=== PATIENT | male | born 1970 | race Caucasian/White ===

== ENCOUNTER 2025-03-31 16:44 | Emergency (ER) | payer OTHER, SELFPAY ==
[2025-03-31] VITALS (10 sets, daily range): BP systolic 81–164; BP diastolic 46–93; PULSE 50–89; RESP 14–25; TEMP 36.7; O2SAT 95–97; BMI 31.5
--- OUTSIDE RECORDS SUMMARY | 2025-03-31 16:51 | XMS_ITS | Data Portability ---
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 I was present during interview and exam. I have reviewed and agree with above documentation . Dr. Mandy Rubi. [email or web address] Not available 03/22/2025 09:14:47 Plan of Treatment Reminders Order Date Submit Date Provider Last Modified By Organization Details Last Modified Time Details Appointments None recorded. Lab CMP, serum or plasma 2024 025 [email or web address] [facility], [address], [address], [place], [address], 11:02:44 CBC 2024 025 [email or web address] [facility], [address] [facility], [address], [place], [address], 5 11:02:44 alpha-gal ige, serum 2024 025 [email or web address] [employer] [facility], [address], [place], [address], 11:02:44 celiac disease comprehen sive panel, serum 2024 025 [email or web address] [employer] [facility], [address], [place], [address], 5 11:02:45 rapid flu (A+B), PCR 2023 024 [email or web address] [facility] ([facility]), [address] [place], [address], 4 16:55:42 PSA, serum or plasma 2022 023 [facility], [address] [address], [facility] [address] [place], [address], 3 08:21:41 CMP, serum or plasma [address] ([facility]), [address] [place], [address], 5 10:50:49 lipid panel, blood [address] ([facility]), [address] [place], [address], 5 10:51:00 Referral None recorded. Procedures None recorded. Surgeries None recorded. Imaging None recorded. Medication Orders pantopraz ole 40 mg tablet,de layed release 2024 [address] [place] [address] [facility], [address], [place], [address], 5 11:07:31 oseltamiv ir 75 mg capsule 2023 025 [facility], [address], [place], [address], 5 09:03:41 Patient TargetsNo targets recorded. Patient InstructionsNo instructions recorded. Reason for Referral None Reported. Results Created Date Observation Date Name Description Value Unit Range Abnormal Flag Note LastModifiedBy Organization Detail LastModifiedTime 01/15/20 23 01/15/2023 LIPID PANEL , STAND JERALD cholesterol, total 236 mg/dL <200 high Not Available [address], [address], 01/15/2023 08:21:40 01/15/20 23 01/15/2023 LIPID PANEL , STAND JERALD HDL cholesterol 33 mg/dL > or = 40 low Not Available [address], [address], 01/15/2023 08:21:40 01/15/20 23 01/15/2023 LIPID PANEL , STAND JERALD triglyceride s 270 mg/dL <150 high If a non-f astin g speci men was colle cted, consi charmaine repea t trigl yceri de testi ng on a fasti ng speci men if clini ahmet indic ated. Ivan choi et al. J. of Clin. Lipid ol. 2015; 9:129 -169. Not Available [address], [address], 01/15/2023 08:21:40 01/15/2001/15/2023 LIPID PANEL , STAND JERALD LDL-choleste rol 159 mg/dL _(kathi c) high Refer ence range : <100 Conrad able range <100 mg/dL for prima ry preve ntion ; <70 mg/dL for patie nts with CHD or diabe tic patie nts with > or = 2 CHD risk facto rs. LDL-C is now calcu lated using the Sharon n-Hop kins calcu mei n, which is a valid ated novel renetta reese than the Fried carmen equat ion in the estim ation of LDL-C . Sharon bradley SS et al. DEEP. 2013; 310(1 9): 2061- 2068 (http ://ed ucati on.Qu estDi agnos tics. com/f aq/FA Q164) Not Available [address], [address], 01/15/2023 08:21:40 01/15/20 23 01/15/2023 LIPID PANEL , STAND JERALD chol/HDLC ratio 7.2 (calc ) <5.0 high Not Available [address], [address], 01/15/2023 08:21:40 01/15/20 23 01/15/2023 LIPID PANEL , STAND JERALD non HDL cholesterol 203 mg/dL _(kathi c) <130 high For patie nts with diabe julio césar plus 1 major ASCVD risk facto r, treat ing to a non-H DL-C goal of <100 mg/dL (LDL- C of <70 mg/dL ) is consi dered a thera peuti c optio n. Not Available [address], [address], 01/15/2023 08:21:40 01/15/2001/15/2023 COMPR EHENS JOSHUA METAB OLIC PANEL glucose 113 mg/dL 65-99 high Fasti ng refer ence inter linda For someo ne witho ut known diabe julio césar, a gluco se value betwe en 100 and 125 mg/dL is consi stent with predi abete s and shoul d be confi rmed with a follo w-up test. Not Available [address], [address], 01/15/2023 08:21:40 01/15/2001/15/2023 COMPR EHENS JOSHUA METAB OLIC PANEL urea nitrogen (BUN) 15 mg/dL 7-25 normal Not Available [address], [address], 01/15/2023 08:21:40 01/15/20 23 01/15/2023 COMPR EHENS JOSHUA METAB OLIC PANEL creatinine 1.15 mg/dL 0.70-1 .30 normal Not Available [facility] [address] [place], [address], 01/15/2023 08:21:40 01/15/20 23 01/15/2023 COMPR EHENS JOSHUA METAB OLIC PANEL eGFR 77 mL/mi n/1.7 3m2 > or = 60 normal The eGFR is based on the CKD-E PI 2020 equat ion. To calcu late the new eGFR from a previ ous Creat inine or Cysta tin C resul t, go to https ://lolita w.isak toledoy.o silvestre/hang kim s/ kdoqi /gfr% 5Fcal culat or Not Available [address], [address], 01/15/2023 08:21:40 01/15/20 23 01/15/2023 COMPR EHENS JOSHUA METAB OLIC PANEL BUN/creatini ne ratio NOT APPLIC ABLE (calc ) 6-22 Not Available [address], [address], 01/15/2023 08:21:40 01/15/20 23 01/15/2023 COMPR EHENS JOSHUA METAB OLIC PANEL sodium 139 mmol/ L 135-14 6 normal Not Available [address], [address], 01/15/2023 08:21:40 01/15/20 23 01/15/2023 COMPR EHENS JOSHUA METAB OLIC PANEL potassium 4.8 mmol/ L 3.5-5. 3 normal Not Available [employer] [address], [address], 01/15/2023 08:21:40 01/15/20 23 01/15/2023 COMPR EHENS JOSHUA METAB OLIC PANEL chloride 105 mmol/ L 98-110 normal Not Available [employer] [address], [address], 01/15/2023 08:21:40 01/15/20 23 01/15/2023 COMPR EHENS JOSHUA METAB OLIC PANEL carbon dioxide 28 mmol/ L 20-32 normal Not Available [address], [address], 01/15/2023 08:21:40 01/15/20 23 01/15/2023 COMPR EHENS JOSHUA METAB OLIC PANEL calcium 9.1 mg/dL 8.6-10 .3 normal Not Available [address], [address], 01/15/2023 08:21:40 01/15/20 23 01/15/2023 COMPR EHENS JOSHUA METAB OLIC PANEL protein, total 6.8 g/dL 6.1-8. 1 normal Not Available [address], [address], 01/15/2023 08:21:40 01/15/20 23 01/15/2023 COMPR EHENS JOSHUA METAB OLIC PANEL albumin 4.2 g/dL 3.6-5. 1 normal Not Available [address], [address], 01/15/2023 08:21:40 01/15/20 23 01/15/2023 COMPR EHENS JOSHUA METAB OLIC PANEL globulin 2.6 g/dL_ (calc ) 1.9-3. 7 normal Not Available [address], [address], 01/15/2023 08:21:40 01/15/20 23 01/15/2023 COMPR EHENS JOSHUA METAB OLIC PANEL albumin/glob ulin ratio 1.6 (calc ) 1.0-2. 5 normal Not Available [address], [address], 01/15/2023 08:21:40 01/15/20 23 01/15/2023 COMPR EHENS JOSHUA METAB OLIC PANEL bilirubin, total 0.5 mg/dL 0.2-1. 2 normal Not Available [facility] [address] [place], [address], 01/15/2023 08:21:40 01/15/20 23 01/15/2023 COMPR EHENS JOSHUA METAB OLIC PANEL alkaline phosphatase 68 U/L 35-144 normal Not Available [facility] [address] [address] [place], [address], 01/15/2023 08:21:40 01/15/20 23 01/15/2023 COMPR EHENS JOSHUA METAB OLIC PANEL AST 12 U/L 10-35 normal Not Available [facility] [address] [address] [place], [address], 01/15/2023 08:21:40 01/15/20 23 01/15/2023 COMPR EHENS JOSHUA METAB OLIC PANEL ALT 17 U/L 9-46 normal Not Available [facility] [address] [address] [place], [address], 01/15/2023 08:21:40 01/15/20 23 01/15/2023 PSA, TOTAL PSA, total 0.18 NG/mL < or = 4.00 normal The total PSA value from this assay syste m is stand ardiz ed again st the WHO stand jerald. The test resul t will be appro ximat apolonia 20% lower when andre red to the equim olar- stand ardiz ed total PSA (Mckinney man Coult er). Andre rison of seria l PSA resul ts shoul d be inter prete d with this fact in mind. This test was perfo rmed using the Sieme ns chemi lumin escen t metho d. Value s obtai quan from diffe rent assay metho ds canno t be used inter moseley eably . PSA level s, regar dless of value , shoul d not be inter prete d as absol rampart evide nce of the prese nce or absen ce of disea se. Not Available [employer] [address] [address] [place], [address], 01/15/2023 08:21:41 09/10/20 24 09/10/2024 rapid flu (A+B) , PCR Influenza A positi ve Not Available [facility] ([facility]) [address] [place], [address], 09/10/2024 16:09:20 09/10/20 24 09/10/2024 rapid flu (A+B) , PCR Influenza B negati ve Not Available [facility] ([facility]) [address] [place], [address], 09/10/2024 16:09:20 Result Notes None recorded. Problems Name Problem SNOMED Code Status Onset Date Resolution Date Notes Provider Name and Address Organization Details Recorded Time Essential hypertension 60305984 Active 2022 Beatriz younger, [facility] 5 09:02:07 Acute gastritis 96234308 Active 2024 Mandy Rubi DO [address] [place] [address], [address], [facility] 5 09:30:41 Problem Notes None recorded. Medical Equipment None Reported. Allergies No known drug allergies Medications Name Sig Start Date Stop Date Status Note LastModified by Organization Details LastModified Time atorvastatin 40 mg tablet Take 1 tablet every day by oral route in the evening for 90 days. 09/10 completed Not Available Not Available Not Available prednisone 20 mg tablet TAKE 2 TABLETS BY MOUTH ONCE DAILY FOR 3 DAYS, THEN 1 TABLET BY MOUTH FOR 3 DAYS, THEN 1/2 TAB BY MOUTH FOR 2 DAYS 01/14 completed Not Available Not Available Not Available tramadol 50 mg tablet TAKE 1 TABLET BY MOUTH EVERY 6 HOURS NEEDED FOR PAIN 01/14 completed Not Available Not Available Not Available cephalexin 500 mg capsule 01/14 completed Not Available Not Available Not Available pantoprazole 40 mg tablet,delay ed release Take 1 tablet every day by oral route in the morning, for gastriti s. 2024 active Not Available Not Available Not Avai lable oseltamivir 75 mg capsule Take 1 capsule twice a day by oral route for 5 days. 03/22 completed Not Available Not Available Not Available amoxicillin 875 mg-potassium clavulanate 125 mg tablet 01/14 completed Not Available Not Available Not Available Vitals Date Recorded Body weight Body mass index (BMI) Body height Oxygen saturation Oxygen saturation in Arterial blood by Pulse oximetry Heart rate Respiratory rate Body temperature Systolic And Diastolic Provider Name and Address Organization Details Last Updated DateTime 3 604296. 46 g 35.1 kg/m2 190.5 cm 98 % 98 % 88 /min 20 /min 97.4 [degF] 172/104 mm[Hg] PAMELA JOHNSON [facility] 3 08:24:42 Date Recorded Body height Body mass index (BMI) Body weight Oxygen saturation Oxygen saturation in Arterial blood by Pulse oximetry Heart rate Respiratory rate Systolic And Diastolic Provider Name and Address Organization Details Last Updated DateTime 5 190.5 cm 32.4 kg/m2 537321. 12 g 98 % 98 % 89 /min 18 /min 139/89 mm[Hg] Beatriz Kiser [facility] 5 09:03:19 Date Recorded Body height Body mass index (BMI) Body weight Body temperature Oxygen saturation Oxygen saturation in Arterial blood by Pulse oximetry Heart rate Systolic And Diastolic Provider Name and Address Organization Details Last Updated DateTime 4 190.5 cm 34.9 kg/m2 356044. 67 g 99.7 [degF] 99 % 99 % 94 /min 152/70 mm[Hg] Payton Mittal [facility] 4 16:12:18 Social History None recorded. Functional Status Question Answer Note LastModified by Organizat ion Details LastModified Time Do you use any illicit or recreational drugs? No [email or web address] Information not available 01/14/2023 Do you or have you ever used any other forms of tobacco or nicotine? No [email or web address] Information not available 01/14/2023 What is your level of alcohol consumption? None [email or web address] Information not available 01/14/2023 Mental Status None recorded. Family History Nothing Reported. Medical History No medical history recorded. Immunizations Vaccine Type Date Status Note Provider Nam e and Address Organization Details Recorded Time Td (adult), 2 Lf tetanus toxoid, preservative free, adsorbed 9 completed Not Available [facility] 03/22/2025 08:41:17 COVID-19, mRNA, LNP-S, PF, 100 mcg/0.5mL dose or 50 mcg/0.25mL dose 1 completed Not Available [facility] 03/22/2025 08:41:17 Past Encounters Encounter ID Performer Location Encounter Start Date Encounter Closed Date Diagnosis/Indication Diagnosis SNOMED-CT Code Diagnosis ICD10 Code Diagnosis Note [id number] Mandy Rubi DO [facility] ([facility]) [address] [place] [phone] 01/14/2023 08:09:01 01/14/2023 19:59:22 Active or passive immunization 861472872 Z23 Adult heal th examination 989016836 Z00.00 I counseled patient on diet, exercise, weight, and mental health. We discussed appropriat e cancer screenings . All questions were addressed. We will obtain wellness labs with phone followup. Screening for malignant neoplasm of prostate 995396140 Z12.5 Screening for malignant neoplasm of colon 023688737 Z12.11 I have reviewed and discussed colon cancer screening options, including colonoscop y. Discussed risks vs benefits including risk of infection and bleeding, perforatio n, possible need for surgery, reaction to medication s, and sever injury or . We discussed pt requiring sedation and possible general anesthesia . Pt agrees to proceed with Colonoscop y at [facility]. Preliminar y procedure date will be 02/05/23 Essential hypertension 94674831 I10 unconfirme d, but very high bp today. pt anxious about visit. pt will monitor bp daily for 2 wks with phone fu. counseled on bp parameters and action plans. possible need for medication s. pt will work on low salt diet and daily exercise. [id number] Mandy Rubi DO [facility] ([facility]) [address] [place] [phone] 03/01/2023 16:41:05 03/12/2023 04:09:26 [id number] MAMADOU FAIR [facility] ([facility]) [address] [place] [address] 09/10/2024 15:50:24 09/10/2024 16:31:28 Cough 50285649 R05.9 Influenza caused by Influenza A virus 431820623 J09.X2 Increase po fluids. Rest. RTC with any new or worsening symptoms. [id number] Mandy Rubi DO [facility] ([facility]) [address] [place] [address] 03/22/2025 08:39:06 03/28/2025 16:13:00 Acute gastritis 31452725 K29.00 03/22/25- Counseled on diagnosis, treatment options including medication s and possible side effects. Will start Pantoprazo le each am before he eats anything, for at least one month.Coun seled avoid smoking, tobacco, alcohol use, spicy/ acidic foods. Consider lab if not improving in 2 weeks, lab for anemic, gluten sensitivit y, alpha gal, orders placed today to be drawn if not improving. Health Concerns Section Related Observation LastModified by Organization Detai ls LastModified Time None Recorded Concern Status LastModified by Organization Details LastModified Time None Recorded Advance Directives Directive None Recorded Payers Insurance Date Sequence Insurance Name Policy Number Policy Vazquez Covered Member ID Vazquez Member ID Guarantor Name 02/09/2025 1 [employer] - IFB (PPO) [id number] Stephanie Bruce [id number] Stephanie Bruce 09/10/2024 1 [employer] [place] [place] [employer] [place] Stephanie Bruce [id number] Stephanie Bruce 03/21/2025 1 [facility] [[email or web address] - PHCS - DOS ON OR AFTER 2022 (PPO) Stephanie Bruce [id number] Stephanie Bruce Notes Date Note Type Note Provider Name and Address Organization Details Recorded Time 01/14/2023 text/html Annual WellnessReported bypatient.Diet and Nutrition:healthy diet Fracture Risk:no history of fractures; no recent explained fracture; no sudden unexplained fractures; no previous musculoskeletal injuries Physical Activity:exercises on a regular basis; recent increase in physical activity; good physical condition Additional Lifestyle Factors:no tobacco use; no alcohol intake; stopped drinking alcohol Depression Risk:never feels sad, empty, or tearful; no loss of interest in activities; no significant changes in weight; no sleep disturbances or insomnia; no agitation; no loss of energy; no feelings of worthlessness or guilt; no thoughts of suicide; no history of depression; no history of mood disorders Hearing:no loss of hearing Vision:no vision problemsNotes:The Patient presents to [facility] for consultation for colonoscopy at the request of: The patient denies any recent abdominal pain, persistent diarrhea, persistent constipation, bloody or dark tarry stools, or mucus stools. Last Colon Cancer screening: never Problems with anesthesia in the past: NONE Family History of Colon cancers: NONE Blood Thinners: NONE Co-morbidities: none New pt, pt has not had a PCP would like to discuss a colonoscopyhas been fasting, would like labs done The patient feels well with no complaints, has good energy level and is sleeping well. Nutrition: balanced diet. Patient exercises every other day. The patient denies any recent severe acute illness or hospitalizations or ER visits. The patient denies any recent medication changes and is tolerating meds well, taking them as prescribed. Mandy Rubi DO [address] [place] [address], [phone], [facility] 01/14/2023 09:01:56 02/26/2023 text/html I performed an E GD and/or a Colonoscopy today on this patient at [facility]. Please see operative note for details. Mandy Rubi DO [address] [place] [address], [phone], [facility] 05/05/2023 08:18:05 09/10/2024 text/html walk in ptPt has a cough, fever and body aches for 2 days. MAMADOU FAIR [address] [place] [address], [phone], [facility] 09/10/2024 16:28:27 03/22/2025 text/html Pt presents for GI upset and pain for 3 weeks He reports sx of decreased appetite, sob, and nausea. He went to bed sick to his stomach and woke up sick to his stomachHe only had diarrhea one episode one time in the last 3 weeks He feels worse after he eats. He has constant growling in his stomach. He has also had tightness to abd and excessive belchingDenies abd pain, reports he has significant bloating. He has taken Rolaids, Tums, Pepto, these may help for a short period when he takes them. He has been losing weight, 20 lbs down since last seen in [place] 09/10/24.He has been working on weight loss, has cut bread out of his diet for the most part. Nonsmoker.No chewing tobacco.Very rare alcohol.Very seldom NSAID use. He admits he probably takes in too much caffeine, drinking unsweet tea, hasn't been drinking much of it the last 1.5 wks, has been drinking water. He admits he was consuming a lot of red pepper, has cut back on this. He did have a tick bite on his back in December, left a welp for a few days. Mandy Rubi, DO [address] [place] [address], [phone], [place] YEFRI [facility] 03/28/2025 09:30:47
[2025-03-31 17:57] LABS: Hematocrit 42.7 % (37-53); Hemoglobin 14.00 g/dL (11.27-16.99); Mean Corpuscular HGB Conc 32.8 g/dL (30-55); Mean Corpuscular Hemoglobin 27.9 pg (27-33); Mean Corpuscular Volume 85.1 fl (82-101); Nucleated Red Blood Cells % 0 %; Platelet Count 192 10^3/cmm (157-399); Red Blood Count 5.02 10^6/uL (3.85-5.65); White Blood Count 6.39 10^3/uL (3.29-11.43)
[2025-03-31 18:18] LABS: Alanine Aminotransferase 21 U/L (0-41); Albumin Level 4.4 g/dL (3.5-5.2); Alkaline Phosphatase 76 U/L (40-130); Anion Gap 17.1 (5-19); Aspartate Amino Transferase 16 U/L (0-40); Blood Urea Nitrogen 20 mg/dL (6-20); Calcium 9.2 mg/dL (8.5-10.5); Carbon Dioxide 25 mmol/L (22-29); Chloride 101 mmol/L (98-107); Creatinine Clr Calc Pharmacy 95.9756; Globulin 3.0 g/dL (1.3-4.6); Glucose 98 mg/dL (65-115); Osmolality Calculated 291 mOsm/kg (285-295); Potassium 4.1 mmol/L (3.5-5.1); Sodium 139 mmol/L (136-145); Total Protein 7.4 g/dL (6.6-8.7)
[2025-03-31 18:25] LABS: INR 0.97 (0.8-1.2); Prothrombin Time 13.50 SECONDS (12.1-14.9)
[2025-03-31] MEDS: HYDROcodone-acetaminophen 5-325 mg Tablet 1 TAB PO (18:25)
[2025-03-31 18:26] LABS: Partial Thromboplastin Time 42.3 SECONDS (23.9-36.7)
--- NOTE | 2025-03-31 19:43 | PC.NURSE ---
Was assessing the patient and he suddenly became pale, diaphoretic, HR dropped to 50, BP 81/46. Put patient flat, applied threat monitoring analyst, started IV. Patient rebounded back to normal after approx 10 mins. HR 73, BP 102/58. Denies any sob, cp. does endorse dizziness.
[2025-03-31 21:24] LABS: Hematocrit 41.7 % (37-53); Hemoglobin 13.50 g/dL (11.27-16.99); Mean Corpuscular HGB Conc 32.4 g/dL (30-55); Mean Corpuscular Hemoglobin 27.4 pg (27-33); Mean Corpuscular Volume 84.6 fl (82-101); Nucleated Red Blood Cells % 0 %; Platelet Count 185 10^3/cmm (157-399); Red Blood Count 4.93 10^6/uL (3.85-5.65); White Blood Count 11.53 10^3/uL (3.29-11.43)
[2025-03-31 21:39] LABS: INR 1.15 (0.8-1.2); Prothrombin Time 15.50 SECONDS (12.1-14.9)
[2025-03-31 21:43] LABS: Alanine Aminotransferase 21 U/L (0-41); Albumin Level 4.2 g/dL (3.5-5.2); Alkaline Phosphatase 71 U/L (40-130); Anion Gap 19.0 (5-19); Aspartate Amino Transferase 15 U/L (0-40); Blood Urea Nitrogen 19 mg/dL (6-20); Calcium 8.9 mg/dL (8.5-10.5); Carbon Dioxide 25 mmol/L (22-29); Chloride 100 mmol/L (98-107); Creatinine Clr Calc Pharmacy 95.9756; Globulin 2.8 g/dL (1.3-4.6); Glucose 116 mg/dL (65-115); Osmolality Calculated 293 mOsm/kg (285-295); Potassium 4.0 mmol/L (3.5-5.1); Sodium 140 mmol/L (136-145); Total Protein 7.0 g/dL (6.6-8.7)
--- NOTE | 2025-03-31 22:26 | ECG_ITS ---
[facility] Test Date: 2025-03-31 Pat Name: Stephanie Bruce Department: Room: Gender: Male Check Out Clerk: : 1970 Requested By: Hemant Deng Order Number: [id number] Diaz MD: Compa Barillas M.D. Measurements Intervals [place] Rate: 82 P: 51 NE: 187 QRS: 18 QRSD: 104 T: 38 QT: 381 QTc: 448 Interpretive Statements SINUS RHYTHM POSSIBLE LEFT ATRIAL ENLARGEMENT [-0.1mV P-WAVE IN V1/V2] LOW QRS VOLTAGE IN PRECORDIAL LEADS [QRS DEFLECTION < 1.0 mV IN CHEST LEADS] No previous ECG available for comparison Electronically Signed On 04-01-2025 00:15:05 CDT by Compa Barillas M.D. [email or web address]
--- NOTE | 2025-03-31 22:28 | W.ED.ANIMALB ---
HPI - Animal Bite General: Chief Complaint: Animal Bite Stated Complaint: poss snake bite Time Seen by Provider: 03/31/25 17:02 History of Present Illness: Patient is a male who presents to the ED with a suspected snake bite to the right ankle. The incident occurred at approximately 15:30 today while the patient was cutting hay. He reports that he got off his tractor to adjust the razor cutter when he felt something strike his right ankle. The patient did not visualize the snake but felt immediate pain at the site. He continued cutting hay for approximately 15-20 minutes before removing his shoe to examine the area. The patient was wearing tennis shoes at the time of the incident rather than his usual boots. The bite site has been progressively swelling and becoming more painful over the past few hours. The patient denies any nausea, vomiting, diaphoresis, or other systemic symptoms at the time of initial presentation. Based on the geographic location and presentation, a copperhead snake bite is suspected. Related Data Previous Rx's ?Medication ?Instructions ?Recorded hydrocodone 5 mg-acetaminophen 325 1 tab PO Q8H PRN pain #20 tabs 03/31/25 mg tablet Allergies Allergy/AdvReac Type Severity Reaction Status Date / Time No Known Allergies Allergy Verified 03/31/25 16:57 Physical Exam Const: COMMON NORMALS: no acute distress, average body habitus, alert and well nourished GENERAL APPEARANCE: cooperative ORIENTATION/CONSCIOUSNESS: Yes awake HENMT: COMMON NORMALS: normocephalic and atraumatic HEAD & SCALP: normocephalic and atraumatic Eye: COMMON NORMALS: conjunctivae normal CONJUNCTIVA: Yes conjunctivae normal Neck/C-Spine: GENERAL: Yes normal visual inspection Resp: COMMON NORMALS: normal respiratory effort, No retractions and No use of accessory muscles Cardio: COMMON NORMALS: regular rhythm and Peripheral pulses 2+ throughout RHYTHM: regular rhythm PERIPHERAL PULSES: Peripheral pulses 2+ throughout GI: COMMON NORMALS: Soft to palpation and non-tender PALPATION: Yes Soft to palpation Extremity: COMMON NORMALS: full ROM and no pedal edema OTHER: Mild to moderate swelling noted to the medial aspect of the right ankle with 2 small puncture wounds consistent with a snakebite. There is tenderness along the medial portion of the right ankle and lower leg. No significant or severe swelling. No calf swelling or tenderness. Palpable pedal pulses. Neuro: COMMON NORMALS: no focal motor deficits SENSORIUM/ORIENTATION: Yes alert Skin: COMMON NORMALS: no rashes or lesions noted GENERAL SKIN EXAM: no rashes or lesions noted Course Vital Signs: Vital signs: Vital Signs Temperature 98.0 F 03/31/25 16:54 Pulse Rate 74 03/31/25 19:38 Respiratory Rate 20 H 03/31/25 19:38 Blood Pressure 155/90 03/31/25 19:38 Pulse Oximetry 95 03/31/25 19:38 Oxygen Delivery Me thod Room Air 03/31/25 19:30 MDM - Animal Bite Medical Decision Making ROS: Constitutional: Denies fever, chills, or sweats initially. Later developed episodes of diaphoresis during observation. Cardiovascular: Experienced an of bradycardia and hypotension during observation. Neurological: No reported dizziness initially, but later had near syncopal episodes. Gastrointestinal: History of inflamed gut lining, improving with medication. Musculoskeletal: Pain and swelling at right ankle bite site. All other systems: Negative or not addressed in the camera technician. 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 Additional considerations include dry bite (ruled out by symptoms), allergic reaction to venom, and potential for coagulopathy. Based on this initial impression I will order: 1. Laboratory studies including CBC, coagulation studies (PT/INR), D-dimer, and chemistry panel 2. Serial monitoring of the bite site for progression of swelling and symptoms 3. Pain control as needed 4. Elevation of the affected extremity 5. Observation for approximately 4 hours to monitor for progression of symptoms 6. Consider antivenom if significant progression of symptoms or abnormal laboratory values TEST INTERPRETATIONS: - EKG: Sinus rhythm with a rate of 86 beats per minute. No ischemic ST elevation or depressions noted. - CBC: Platelets 192 on first draw, 185 on second draw (normal) - Coagulation studies: PT 13.5 on first draw, 15.5 on second draw - D-dimer: Normal on two separate draws - Chemistry panel: Unremarkable - Cardiac enzymes: Pending at time of note completion PROCEDURES: IV fluid administration during episodes of hypotension and bradycardia. Patient was placed in Trendelenburg position during hypotensive episode. CONSIDERED BUT NOT PERFORMED: Antivenom administration CONSIDERED but NOT DONE due to mild envenomation presentation, stable vital signs (after initial episodes), and normal laboratory values without evidence of coagulopathy. OTC medications/interventions recommended included: Elevation of the affected extremity, [id number] pain medications as needed if pain persists after discharge, and close monitoring for increased swelling or pain. FINAL IMPRESSION: Based on all the above, my clinical impression is most compatible with copperhead snake envenomation with mild to moderate local tissue reaction and transient autonomic instability. The clinical picture is not currently suggestive of severe envenomation, compartment syndrome, or significant coagulopathy. Although other conditions were also considered, they were deemed unlikely based on the clinical information available. CLINICAL DISPOSITION: The patient's current condition is stable after approximately 6 hours of observation in my estimation and the most appropriate and indicated disposition at this time is continued observation in the Emergency Department for 1-2 additional hours with reassessment prior to potential discharge home. The patient has declined hospital admission at this time despite recommendation for continued telemetry monitoring due to episodes of bradycardia and hypotension. The patient understands the limitations of his workup without admission for continued telemetry monitoring. If the patient continues to remain stable without further episodes of hypotension or bradycardia, and if cardiac enzymes return normal, discharge home with close follow-up may be reasonable. However, any recurrence of autonomic instability would warrant admission for continued monitoring. RISK STRATIFICATION AND CLINICAL DECISION RULES APPLIED: Snake Envenomation Severity Assessment: Mild to moderate local tissue reaction with two puncture wounds and progressive swelling. No evidence of coagulopathy on laboratory testing. Transient autonomic instability noted, which raises concern for potential systemic effects of envenomation. Observation period of 6+ hours completed, which exceeds the typical 4-hour observation period recommended for suspected copperhead bites with mild symptoms. CASE SUMMARY: Patient is a male who presented to the ED with a suspected copperhead snake bite to the right medial ankle that occurred while cutting hay. He was wearing tennis shoes rather than his usual boots when the incident occurred. Physical examination revealed two puncture wounds with mild to moderate swelling. Laboratory studies showed no evidence of coagulopathy with normal platelets, mild elevation in PT, and normal D-dimer. During observation, the patient experienced two episodes of bradycardia and hypotension with diaphoresis, requiring Trendelenburg positioning and IV fluids. The patient was observed for approximately 6 hours with serial examinations showing no significant progression of local swelling. Pain was controlled with one dose of hydrocodone. Due to the episodes of autonomic instability, admission for telemetry monitoring was recommended, but the patient declined. The patient requested continued observation in the ED for 1-2 additional hours with reassessment prior to potential discharge. The case was discussed with Dr. Cohen who will continue observation, complete cardiac enzyme testing, and reassess the patient prior to making final disposition decision. Lab Data I reviewed the patient's lab results. 03/31/25 21:03 03/31/25 21:03 Laboratory Results WBC 11.53 10^3/uL (3.29-11.43) H 03/31/25 21: RBC 4.93 10^6/uL (3.85-5.65) 03/31/25 21:03 Hgb 13.50 g/dL (11.27-16.99) 03/31/25 21:03 Hct 41.7 % (37-53) 03/31/25 21:03 MCV 84.6 fl (82-101) 03/31/25 21:03 MCH 27.4 pg (27-33) 03/31/25 21: MCHC 32.4 g/dL (30-55) 03/31/25 21:03 RDW 13.9 % (12.1-15.1) 03/31/25 21:03 Plt Count 185 10^3/cmm (157-399) 03/31/25 21:03 MPV 11.3 fL (7.4-10.4) H 03/31/25 21:03 Neut % (Auto) 78.3 % 03/31/25 21:03 Lymph % (Auto) 11.9 % 03/31/25 21:03 [place] % (Auto) 8.1 % 03/31/25 21:03 Eos % (Auto) 1.1 % 03/31/25 21:03 Baso % (Auto) 0.3 % 03/31/25 21:03 Neut # (Auto) 9.03 10^3/uL (1.8-7.7) H 03/31/25 21:03 Lymph # (Auto) 1.4 10^3/uL (0.8-4.8) 03/31/25 21:03 [place] # (Auto) 0.9 10^3/uL (0.2-0.9) 03/31/25 21:03 Eos # (Auto) 0.1 10^3/uL (0.0-0.8) 03/31/25 21:03 Baso # (Auto) 0.0 10^3/uL (0.0-0.1) 03/31/25 21:03 Nucleated RBC % (auto) 0 % 03/31/25 21:03 Nucleated RBCs # 0.0 /100WBC 03/31/25 21:03 PT 15.50 SECONDS (12.1-14.9) H 03/31/25 21:03 INR 1.15 (0.8-1.2) 03/31/25 21:03 APTT 42.3 SECONDS (23.9-36.7) H 03/31/25 17:46 D-Dimer 0.32 ug/mLFEU (0-0.59) 03/31/25 21:03 Sodium 140 mmol/L (136-145) 03/31/25 21:03 Potassium 4.0 mmol/L (3.5-5.1) 03/31/25 21:03 Chloride 100 mmol/L (98-107) 03/31/25 21:03 Carbon Dioxide 25 mmol/L (22-29) 03/31/25 21:03 Anion Gap 19.0 (5-19) 03/31/25 21:03 BUN 19 mg/dL (6-20) 03/31/25 21:03 Creatinine 1.2 mg/dL (0.7-1.2) 03/31/25 21:03 GFR Calculation 63.1 mL/min (90-130) L 03/31/25 21:03 Glucose 116 mg/dL (65-115) H 03/31/25 21:03 Calculated Osmolality 293 mOsm/kg (285-295) 03/31/25 21:03 Calcium 8.9 mg/dL (8.5-10.5) 03/31/25 21:03 Total Bilirubin 0.5 mg/dL (0.15-1.2) 03/31/25 21:03 AST 15 U/L (0-40) 03/31/25 21:03 ALT 21 U/L (0-41) 03/31/25 21:03 Alkaline Phosphatase 71 U/L (40-130) 03/31/25 21:03 Total Protein 7.0 g/dL (6.6-8.7) 03/31/25 21:03 Albumin 4.2 g/dL (3.5-5.2) 03/31/25 21:03 Globulin 2.8 g/dL (1.3-4.6) 03/31/25 21:03 No radiology studies performed this visit Discharge Plan Discharge Clinical Impression: Snake bite Condition: Stable Prescriptions: New hydrocodone-acetaminophen 5-325 mg tablet 1 tab PO Q8H PRN (Reason: pain) Qty: 20 0RF Referrals: Jorge Luis Gee DO [Primary Care Provider, [facility]] Discharge Diet: Usual diet Discharge Activity: Increase activity as tolerated Patient Instructions: Snakebite Activity Restrictions/Additional Instructions: DIAGNOSIS: Snake bite (suspected copperhead) to right ankle INSTRUCTIONS: 1. Keep the affected limb elevated when sitting or lying down to reduce swelling 2. Apply ice packs to the bite area for 15-20 minutes every 1-2 hours for the next 24-48 hours 3. Take plzi-bhv-oheived pain medications as directed for discomfort 4. Keep the bite area clean and dry 5. Monitor for increasing swelling, redness, or pain 6. Avoid strenuous activity with the affected limb for at least 1 week 7. Wear appropriate protective footwear (boots) when working outdoors FOLLOW-UP: Schedule an appointment with your primary care physician within 3-5 days RETURN TO THE EMERGENCY DEPARTMENT IMMEDIATELY IF: 1. Severe increase in pain or swelling that is not relieved by elevation 2. Numbness or tingling that spreads beyond the bite area 3. Difficulty breathing or swallowing 4. Chest pain or palpitations 5. Lightheadedness, dizziness, or fainting 6. Nausea, vomiting, or abdominal pain 7. Unusual bleeding or bruising 8. Fever greater than 101?F 9. Any other concerning symptoms Print Language: Rwandan Coding Level of Care Code ED Health Care Recruiter for Grace Welsh
[2025-03-31 22:52] LABS: Troponin(5th) Baseline < 6 ng/L (0-15)
[2025-04-01] VITALS: BP 137/85; PULSE 73; RESP 14; O2SAT 95
--- NOTE | 2025-04-01 00:21 | ECG_ITS ---
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
[2025-04-01 00:47] LABS: Troponin 5 2HR < 6.0 ng/L (0-15); Troponin 5 2HR Delta 0 ABS# (0-10)
[2025-04-01 02:04] VITALS: BP 125/76; PULSE 71; RESP 14; O2SAT 96
== END 2025-04-01 02:00 | disposition home or self-care (01) ==
PROVIDERS: Student in an Organized Health Care Education/Training Program; Emergency Provider Student in an Organized Health Care Education/Training Program; PCP Electrodiagnostic Medicine
DX: S91.051A Open bite, right ankle, initial encounter (principal); T63.001A Toxic effect of unspecified snake venom, accidental (unintentional), initial encounter
CPT/HCPCS: 36415; 80053; 84484; 85025; 85378; 85610; 85730; 93005; 99284; J9999